=== PATIENT | female | born 1970 | race Hispanic/Latino ===

== ENCOUNTER 2017-11-06 10:53 | Outpatient (CLI) | payer MEDICARE, MEDICAID | END 2017-11-06 10:54 | disposition home or self-care (01) | LOC: BICMAMMO 10:53 | PROVIDERS: ATTEND Nurse Practitioner Family | DX: Z12.31 Encounter for screening mammogram for malignant neoplasm of breast (principal) | CPT/HCPCS: 77063; 77067 ==

== ENCOUNTER 2018-04-08 07:26 | Emergency (ER) | payer MEDICARE, MEDICAID ==
[2018-04-08 08:16] LABS: Bilirubin Negative (Negative); Blood, Urine Large (Negative); Clarity CLEAR (Clear); Glucose, Urine (Dipstick) >=1000 mg/dL (Negative); Leukocyte Negative (Negative); Nitrite Negative (Negative); Protein, Urine (Dipstick) Negative (Neg-Trace); Specific Gravity, Urine 1.031 (1.002-1.036); Urobilinogen 0.2 mg/dL (0.2-1.0)
[2018-04-08 08:17] LABS: Bacteria/HPF Rare-Few HPF (None Seen); Hyaline Casts/LPF 0-3 HYALINE CAST LPF (0-3 Hyaline); WBC/HPF 0-3 HPF (0-3)
[2018-04-08 08:21] LABS: Pregnancy Test - Urine (BHCG) Negative (Negative); Pregu Control Bar Appear? YES (CONTROL BAR); Specific Gravity 1.031 (1.002-1.036)
[2018-04-08 08:22] LABS: Pregu Control Background? CLEAR/WHITE (CLR/WHITE)
--- NOTE | 2018-04-08 09:43 | RAD ---
LEFT LEG TWO VIEWS: History: Injury. Pain. FINDINGS/IMPRESSION: The left tibia and fibula are intact. A plantar calcaneal spur is present. POS: [facility]
== END 2018-04-08 10:04 | disposition home or self-care (01) ==
LOC: ERS 07:26
DX: E11.65 Type 2 diabetes mellitus with hyperglycemia (principal); R30.0 Dysuria; E78.5 Hyperlipidemia, unspecified; M19.90 Unspecified osteoarthritis, unspecified site; E78.00 Pure hypercholesterolemia, unspecified; F32.9 Major depressive disorder, single episode, unspecified; Z87.891 Personal history of nicotine dependence
CPT/HCPCS: 36416; 81003; 81015; 81025; 87077; 87086

== ENCOUNTER 2018-11-12 12:04 | Outpatient (CLI) | payer MEDICARE, MEDICAID | END 2018-11-12 12:05 | disposition home or self-care (01) | LOC: BICMAMMO 12:04 | PROVIDERS: ATTEND Nurse Practitioner Family | DX: Z12.31 Encounter for screening mammogram for malignant neoplasm of breast (principal); Z80.3 Family history of malignant neoplasm of breast | CPT/HCPCS: 77063; 77067 ==

== ENCOUNTER 2019-12-18 09:00 | Outpatient (CLI) | payer MEDICARE, MEDICAID ==
--- NOTE | 2019-12-18 10:29 | MRI ---
MRI of thecervical spine: 12/18/2019 COMPARISON:None available HISTORY:Right arm numbness TECHNIQUE: Multiplanar multisequence MR imaging of thecervical spine without contrast Findings:The sagittal STIR imaging demonstrates no focal area of osseous marrow edema. There is straightening of the normal cervical lordosis with mild anterolisthesis at C4-5 measuring ap proximately 3 mm. C2-3: No significant central canal stenosis. Mild facet hypertrophy on the left with mild left neural foraminal stenosis. C3-4: Facet and uncovertebral osteophyte formation on the left causes mild left neural foraminal sten osis. No significant central canal or right neural foraminal stenosis. C4-5: Facet and uncovertebral osteophyte formation noted bilaterally, left greater than right. Mild r ight and moderate left neural foraminal stenosis. There is disc bulge with partial effacement of the ventral thecal sac and a mild degree of central canal stenosis. C5-6: There is disc space narrowing with disc desiccation and mild disc bulge partially effacing the ventral thecal sac, with a mild degree of central canal stenosis. Facet and uncovertebral osteophyte formation noted bilaterally, left greater than right. Mild right and moderate/severe left neural foraminal stenosis. C6-7: There is disc space narrowing with disc desiccation. There is a central annular tear with an as sociated central/right paracentral disc extrusion. This effaces the ventral aspect of the thecal sac and abuts the ventral aspect of the cervical cord with a moderate degree of central canal stenosi s. This disc extrusion measures approximately 1.2 cm in transverse dimension and 9 mm in craniocaudal dimension. Facet and uncovertebral osteophyte formation on the right causes a severe deg ree of right neural foraminal stenosis. C7-T1: Facet and uncovertebral osteophyte formation on the left causes mild left neural foraminal ambrose nosis. No significant central canal or right neural foraminal stenosis. No focal area of abnormal signal intensity within the cervical cord. IMPRESSION:Multilevel cervical spine degenerative disc disease as detailed above. Most significant fi nding is a disc extrusion at C6-7 as detailed above.
== END 2019-12-18 09:01 | disposition home or self-care (01) ==
LOC: SCSMRI 09:00
PROVIDERS: ATTEND Orthopaedic Surgery
DX: M50.123 Cervical disc disorder at C6-C7 level with radiculopathy (principal)
CPT/HCPCS: 72141

== ENCOUNTER 2020-07-02 12:05 | Outpatient (CLI) | payer MEDICARE, MEDICAID ==
--- NOTE | 2020-07-02 14:21 | MMO ---
Bilateral MAMMO Bilat Screen [facility]. CLINICAL HISTORY: Patient is 50 years old and is seen for screening. The patient has no family history of breast cancer. The patient has no personal history of cancer. VIEWS: The views performed were: bilateral craniocaudal with tomosynthesis and bilateral mediolateral oblique with tomosynthesis. FILMS COMPARED: The present examination has been compared to prior imaging studies performed at [facility] on 04/08/2013, 05/08/2016, 11/06/2017 and 11/12/2018. This study has been interpreted with the assistance of computer-aided detection. MAMMOGRAM FINDINGS: The breasts are heterogeneously dense, which could obscure a lesion on mammography. There are no suspicious masses, suspicious calcifications, or new areas of architectural distortion. IMPRESSION: THERE IS NO MAMMOGRAPHIC EVIDENCE OF MALIGNANCY. A ROUTINE FOLLOW-UP MAMMOGRAM IN 1 YEAR IS RECOMMENDED. THE RESULTS OF THIS EXAM WERE SENT TO THE PATIENT. ACR BI-RADS Category 1 - Negative MAMMOGRAPHY NOTE: 1. A negative mammogram report should not delay a biopsy if a dominant of clinically suspicious mass is present. 2. Approximately 10% to 15% of breast cancers are not detected by mammography. 3. Adenosis and dense breasts may obscure an underlying neoplasm. Reported by: LETICIA GANDARA MD Electonically Signed: [id number]
== END 2020-07-02 12:06 | disposition home or self-care (01) ==
LOC: BICMAMMO 12:05
PROVIDERS: ATTEND Nurse Practitioner Family
DX: Z12.31 Encounter for screening mammogram for malignant neoplasm of breast (principal)
CPT/HCPCS: 77063; 77067

== ENCOUNTER 2021-07-07 08:02 | Outpatient (CLI) | payer MEDICARE, MEDICAID | END 2021-07-07 08:03 | disposition home or self-care (01) | LOC: BICMAMMO 08:02 | PROVIDERS: ATTEND Nurse Practitioner Family | DX: Z12.31 Encounter for screening mammogram for malignant neoplasm of breast (principal); Z80.3 Family history of malignant neoplasm of breast | CPT/HCPCS: 77063; 77067 ==

== ENCOUNTER 2022-07-12 09:48 | Outpatient (CLI) | payer MEDICARE, MEDICAID | END 2022-07-12 09:49 | disposition home or self-care (01) | LOC: BICMAMMO 09:48 | PROVIDERS: ATTEND Nurse Practitioner Family | DX: Z12.31 Encounter for screening mammogram for malignant neoplasm of breast (principal); Z80.3 Family history of malignant neoplasm of breast | CPT/HCPCS: 77063; 77067 ==

== ENCOUNTER 2022-11-16 08:47 | Observation (INO) | payer OTHER, MEDICAID ==
[2022-11-16] MEDS ORDERED: Tranexamic Acid 1,000 MG/10 ML VIAL ONE (09:44)
[2022-11-16] MEDS ORDERED: CEFAZOLIN 2 GM VIAL ONE (09:44)
[2022-11-16] MEDS ORDERED: Vancomycin (BATCH) 1.5 GRAM/300 ML BAG ONE (09:44)
[2022-11-16] MEDS ORDERED: Sodium Chloride 0.9% 200 ML ONE (09:44)
[2022-11-16] MEDS ORDERED: Fentanyl 100 MCG/2 ML VIAL ONE (09:57)
[2022-11-16] MEDS ORDERED: Midazolam HCl 2 mg/2 ml Vial ONE ×2 (09:57→10:25)
[2022-11-16] MEDS ORDERED: Bupivacaine PF 0.5% 30 ML VIAL ONE (09:57)
[2022-11-16] MEDS ORDERED: SUGAMMADEX SODIUM 200 MG/2 ML VIAL ONE (10:22)
[2022-11-16] MEDS ORDERED: fentaNYL PF 100 MCG/2 ML SYRINGE ONE ×2 (10:22→12:18)
[2022-11-16] MEDS ORDERED: Glycopyrrolate 0.2 MG/ML 5 ML SYRINGE ONE (10:35)
[2022-11-16] MEDS ORDERED: Bupivacaine HCl 0.5%/Epinephrine 1:200,000/PF 30 ml Vial ONE (10:35)
[2022-11-16] MEDS ORDERED: Dexamethasone 20 MG/5 ML VIAL ONE (10:35)
[2022-11-16] MEDS ORDERED: Rocuronium Bromide 10 MG/ML (10ML VIAL) ONE (10:35)
[2022-11-16] MEDS ORDERED: NEOSTIGMINE 3 MG/3 ML SYR 3 MG/3 ML SYRINGE ONE (10:35)
[2022-11-16] MEDS ORDERED: Metoclopramide HCl 10 MG/2 ML VIAL ONE (10:35)
[2022-11-16] MEDS ORDERED: Lidocaine 1% PF 5 ML VIAL ONE (10:35)
[2022-11-16] MEDS ORDERED: PROPOFOL 200 MG/20 ML VIAL ONE (10:35)
[2022-11-16] MEDS ORDERED: Fentanyl 100 MCG/2 ML VIAL SLOW IVP PRN (11:04)
[2022-11-16] MEDS ORDERED: Ropivacaine 0.2% 550 ML 550 ML NERVE BLCK SCH (11:15)
[2022-11-16] MEDS ORDERED: Ondansetron PF 4 MG/2 ML Vial IVP PRN ×2 (11:15→13:26)
[2022-11-16] MEDS ORDERED: traMADol HCl 50 MG TAB PO PRN ×4 (11:15→13:26)
[2022-11-16] MEDS ORDERED: Promethazine HCl 25 MG/ML VIAL IM PRN (11:15)
[2022-11-16] MEDS ORDERED: HYDROcodone/Acetaminophen 10/325 mg Tablet PO PRN ×4 (11:15→13:26)
[2022-11-16] MEDS ORDERED: Zolpidem Tartrate 5 MG TAB PO PRN ×2 (11:15→13:26)
[2022-11-16] MEDS ORDERED: Promethazine HCl 25 MG/ML VIAL ONE (12:19)
[2022-11-16] MEDS ORDERED: Ketorolac Tromethamine 30 MG/ML VIAL ONE (12:19)
[2022-11-16] MEDS: Ketorolac Tromethamine 30 MG/ML VIAL IVP SCH ×3 (13:04→23:27)
[2022-11-16] MEDS ORDERED: Methocarbamol 1 GM/10 ML VIAL SLOW IVP PRN (13:26)
[2022-11-16] MEDS ORDERED: Insulin Regular 300 UNITS/3 ML VIAL SC PRN (13:26)
[2022-11-16] MEDS ORDERED: Ondansetron ODT 4 MG TAB PO PRN (13:26)
[2022-11-16] MEDS ORDERED: Acetaminophen 325 MG TAB PO PRN (13:26)
[2022-11-16] MEDS ORDERED: Bisacodyl 10 MG SUPP PR PRN (13:26)
[2022-11-16] MEDS ORDERED: Dextrose 5% in Water 1,000 ML IV PRN (13:26)
[2022-11-16] MEDS ORDERED: Milk Of Magnesia 30 ML UDCUP PO PRN (13:26)
[2022-11-16] MEDS ORDERED: diphenhydrAMINE 50 MG CAP PO PRN (13:26)
[2022-11-16] MEDS ORDERED: Dextrose 50% Abboject 50 ML SYRINGE SLOW IVP PRN (13:26)
[2022-11-16] MEDS ORDERED: Methocarbamol 500 MG TAB PO PRN (13:26)
[2022-11-16] MEDS: Sodium Chloride 0.9% 1,000 ML IV SCH ×2 (15:11→22:30)
[2022-11-16] MEDS ORDERED: Cyclobenzaprine 10 MG TAB PO PRN (15:22)
[2022-11-16] MEDS ORDERED: Naproxen 500 MG TAB PO PRN (15:22)
[2022-11-16] MEDS: glipiZIDE 5 MG TAB PO SCH (17:12)
[2022-11-16] MEDS: CEFAZOLIN 2 GM in Sodium Chloride 0.9% 100 ML IVPB SCH ×2 (17:12→23:29)
[2022-11-16] MEDS: metFORMIN 500 MG TAB PO SCH (20:37)
[2022-11-16] MEDS: Famotidine 20 MG TAB PO SCH (20:37)
[2022-11-16] MEDS ORDERED: Amitriptyline HCl 100 MG TAB PO SCH (21:00)
[2022-11-16] MEDS ORDERED: Atorvastatin Calcium 10 MG TAB PO SCH (21:00)
[2022-11-16] MEDS ORDERED: Vancomycin 1.5 GRAM/300 ML BAG 1.5 GM in Premix Bag 1 BAG IVPB SCH (22:00)
[2022-11-17] MEDS: Ketorolac Tromethamine 30 MG/ML VIAL IVP SCH (04:39)
[2022-11-17 05:34] VITALS: BP 117/76
[2022-11-17 08:34] VITALS: TEMP 98.3
[2022-11-17] MEDS: metFORMIN 500 MG TAB PO SCH (08:46)
[2022-11-17] MEDS: glipiZIDE 5 MG TAB PO SCH (08:46)
[2022-11-17] MEDS: Famotidine 20 MG TAB PO SCH (08:46)
[2022-11-17] MEDS ORDERED: Cholecalciferol 1,000 UNITS (25 MCG) TAB PO SCH (09:00)
[2022-11-17] MEDS ORDERED: Lisinopril 5 MG TAB PO SCH (09:00)
[2022-11-17] MEDS ORDERED: Alogliptin 6.25 MG TAB PO SCH (09:00)
== END 2022-11-17 11:50 | disposition home or self-care (01) ==
LOC: SDC 08:47 → SURG B 10:28
PROVIDERS: ADMIT Orthopaedic Surgery; ATTEND Orthopaedic Surgery
PROC: 0RRK0JZ Replacement of Left Shoulder Joint with Synthetic Substitute, Open Approach (ICD-10-PCS; principal; 2022-11-16)
DX: M19.012 Primary osteoarthritis, left shoulder (principal); M67.912 Unspecified disorder of synovium and tendon, left shoulder; G89.29 Other chronic pain; M54.9 Dorsalgia, unspecified; I25.10 Atherosclerotic heart disease of native coronary artery without angina pectoris; E11.9 Type 2 diabetes mellitus without complications; I10 Essential (primary) hypertension; E78.00 Pure hypercholesterolemia, unspecified; Z79.84 Long term (current) use of oral hypoglycemic drugs; Z79.899 Other long term (current) drug therapy
CPT/HCPCS: 23472; 82962 ×2; 97110 ×2; 97116 ×2; 97535; A4306; C1713 ×2; C1776; C1889; J3370; 36416; 96365; 96366; 96367; 96375; 96376; G0378; J1100; J1815; J1885; J2250; J2550; J2704; J2765; J2795; J3010; J3490; S0020

== ENCOUNTER 2022-12-02 07:09 | Emergency (ER) | payer OTHER | END 2022-12-02 09:54 | disposition home or self-care (01) | LOC: ERS 07:09 | DX: R05.9 Cough, unspecified (principal); I10 Essential (primary) hypertension; E78.00 Pure hypercholesterolemia, unspecified; Z87.891 Personal history of nicotine dependence | CPT/HCPCS: 71045 ==

== ENCOUNTER 2023-02-22 09:45 | Emergency (ER) | payer MEDICARE, MEDICAID ==
[2023-02-22] MEDS ORDERED: Ketorolac Tromethamine 30 MG/ML VIAL ONE (10:05)
[2023-02-22] MEDS ORDERED: Orphenadrine Citrate 60 MG/2 ML VIAL ONE (10:33)
[2023-02-22 10:54] LABS: Bilirubin Negative (Negative); Blood, Urine Negative (Negative); Clarity Turbid (Clear); Glucose, Urine (Dipstick) 150 mg/dL (Negative); Ketone, Urine Negative (Negative); Leukocyte Negative Leu/uL (Negative); Nitrite Negative (Negative); Protein, Urine (Dipstick) Negative (Neg-Trace); Specific Gravity, Urine 1.019 (1.002-1.036); Urobilinogen Normal mg/dL (Less than 2)
== END 2023-02-22 11:46 | disposition home or self-care (01) ==
LOC: ERS 09:45
DX: M54.50 Low back pain, unspecified (principal); I10 Essential (primary) hypertension; E11.9 Type 2 diabetes mellitus without complications; M19.90 Unspecified osteoarthritis, unspecified site; E78.00 Pure hypercholesterolemia, unspecified; Z87.891 Personal history of nicotine dependence; Z79.84 Long term (current) use of oral hypoglycemic drugs; Z79.899 Other long term (current) drug therapy
CPT/HCPCS: 81003; 96372; 99283; J1885; J2360

== ENCOUNTER 2023-06-06 12:07 | Emergency (ER) | payer OTHER, MEDICAID ==
[2023-06-06 13:16] LABS: SARS-CoV-2 NAA Rapid Test DETECTED (NotDetected)
== END 2023-06-06 13:49 | disposition home or self-care (01) ==
LOC: ERS 12:07
DX: U07.1 COVID-19 (principal); E11.9 Type 2 diabetes mellitus without complications; E78.5 Hyperlipidemia, unspecified; I10 Essential (primary) hypertension; Z87.891 Personal history of nicotine dependence; Z79.899 Other long term (current) drug therapy
CPT/HCPCS: 0240U; 71045

== ENCOUNTER 2025-04-15 08:39 | Outpatient (CLI) | payer OTHER, MEDICAID | END 2025-04-15 08:40 | disposition home or self-care (01) | LOC: SCSMRI 08:39 | PROVIDERS: ATTEND Orthopaedic Surgery | DX: M24.811 Other specific joint derangements of right shoulder, not elsewhere classified (principal); M75.121 Complete rotator cuff tear or rupture of right shoulder, not specified as traumatic; M25.411 Effusion, right shoulder; S43.491A Other sprain of right shoulder joint, initial encounter ==

== ENCOUNTER 2025-05-25 15:50 | Emergency (ER) | payer OTHER, MEDICAID ==
[2025-05-25] MEDS ORDERED: diphenhydrAMINE 25 MG CAP ONE (19:17)
[2025-05-25] MEDS ORDERED: Famotidine 20 MG TAB ONE (19:18)
[2025-05-25] MEDS ORDERED: predniSONE 20 MG TAB ONE (19:18)
== END 2025-05-25 20:05 | disposition home or self-care (01) ==
LOC: ERS 15:50
DX: T78.40XA Allergy, unspecified, initial encounter (principal); E11.9 Type 2 diabetes mellitus without complications; I10 Essential (primary) hypertension; Z87.891 Personal history of nicotine dependence
CPT/HCPCS: 99282; J7512

== ENCOUNTER 2025-09-18 09:20 | Outpatient (CLI) | payer OTHER ==
[2025-09-18 10:18] LABS: #Basophils 0.04 10x3/uL (0.0-0.2); #Eosinophils 0.13 10x3/uL (0.0-0.7); #Monocytes 0.69 10x3/uL (0.11-0.59); #Neutrophils 4.63 10x3/uL (1.40-6.50); %Basophils 0.5 % (0.0-1.0); %Eosinophils 1.5 % (0.0-10.0); %Lymphocytes 35.8 % (21.0-51.0); %Monocytes 8.0 % (0.0-10.0); %Neutrophils 53.9 % (42.0-75.0); Hematocrit 40.4 % (36.0-47.0); Hemoglobin 12.7 g/dL (12.0-16.0); Mean Corpuscular Hemoglobin 27.9 pg (27.0-31.0); Mean Corpuscular Volume 88.8 fL (78.0-98.0); Platelet Count 270 10x3/uL (130-400); Red Blood Cell (RBC) Count 4.55 mill/uL (4.20-5.40); White Blood Cell (WBC) Count 8.60 10x3/uL (4.8-10.8)
[2025-09-18 10:37] LABS: ALT (SGPT) 27 U/L (Less than 34); AST (SGOT) 23 U/L (11-34); Albumin 4.2 g/dL (3.1-4.5); Alkaline Phosphatase 66 U/L (40-110); Anion Gap 10 mmol/L (10-20); BUN (Urea Nitrogen) 24 mg/dL (9.8-20.1); Bilirubin, Total 0.5 mg/dL (0.3-1.2); Calc. Creatinine Clearance 0 mL/min (70-130); Calcium 9.6 mg/dL (7.8-10.44); Carbon Dioxide 28 mmol/L (22-29); Chloride 108 mmol/L (98-107); Globulin 3.1 g/dL (2.4-3.5); Glucose 133 mg/dL (70-105); Potassium 4.3 mmol/L (3.5-5.1); Sodium 142 mmol/L (136-145)
== END 2025-09-18 09:21 | disposition home or self-care (01) ==
LOC: LABBT 09:20
PROVIDERS: ATTEND Orthopaedic Surgery
DX: Z01.818 Encounter for other preprocedural examination (principal); M75.121 Complete rotator cuff tear or rupture of right shoulder, not specified as traumatic
CPT/HCPCS: 80053; 85025; 93005; 93010

== ENCOUNTER 2025-09-24 05:48 | Day surgery (SDC) | payer OTHER ==
[2025-09-18 09:46] VITALS: BMI 35.2
[2025-09-24] MEDS ORDERED: fentaNYL PF 100 MCG/2 ML SYRINGE ONE (06:28)
[2025-09-24] MEDS ORDERED: Lidocaine 1% (PF) 30 ML VIAL ONE (06:39)
[2025-09-24] MEDS ORDERED: Ropivacaine 0.2% HCl/PF 20 ML ONE (06:39)
[2025-09-24] MEDS ORDERED: Ropivacaine 0.5% HCl/PF (150 MG/30 ML VIAL) ONE (06:39)
[2025-09-24] MEDS ORDERED: PHENYLEPHRINE-NS 100 MCG/ML 10 ML SYRINGE ONE (07:35)
[2025-09-24] MEDS ORDERED: PROPOFOL 200 MG/20 ML VIAL ONE (07:35)
[2025-09-24] MEDS ORDERED: Rocuronium Bromide 10 MG/ML (10ML VIAL) ONE (07:35)
[2025-09-24] MEDS ORDERED: Ropivacaine 0.2% 550 ML 550 ML NERVE BLCK SCH (08:00)
[2025-09-24] MEDS ORDERED: HYDROcodone/Acetaminophen 5/325 mg Tablet PO PRN ×2 (08:00)
[2025-09-24] MEDS ORDERED: Ketorolac Tromethamine 30 MG (1 mL) VIAL IVP PRN (08:00)
[2025-09-24] MEDS ORDERED: Ondansetron PF 4 MG/2 ML Vial IVP PRN (08:00)
[2025-09-24] MEDS ORDERED: SUGAMMADEX SODIUM 200 MG/2 ML VIAL ONE (09:09)
== END 2025-09-24 11:58 | disposition home or self-care (01) ==
LOC: SDC 05:48
PROVIDERS: ATTEND Orthopaedic Surgery
PROC: 0LM14ZZ Reattachment of Right Shoulder Tendon, Percutaneous Endoscopic Approach (ICD-10-PCS; principal; 2025-09-24)
PROC: 0LS30ZZ Reposition Right Upper Arm Tendon, Open Approach (ICD-10-PCS; principal; 2025-09-24)
PROC: 3E0T3BZ Introduction of Anesthetic Agent into Peripheral Nerves and Plexi, Percutaneous Approach (ICD-10-PCS; 2025-09-24)
DX: M75.121 Complete rotator cuff tear or rupture of right shoulder, not specified as traumatic (principal); M75.21 Bicipital tendinitis, right shoulder; E11.9 Type 2 diabetes mellitus without complications; Z98.51 Tubal ligation status; Z96.612 Presence of left artificial shoulder joint; Z88.8 Allergy status to other drugs, medicaments and biological substances
CPT/HCPCS: 23430; 29827; 64416; 82962; A4306; C1713 ×3; J0169; J2003; J2704; J2795 ×3; J3010; 36416